=== PATIENT | female | born 1965 | race Caucasian/White ===

== ENCOUNTER 2020-11-24 11:59 | Outpatient (CLI) | payer OTHER, MEDICAID, SELFPAY ==
--- NOTE | 2020-11-24 11:30 | DI.RAD_ITS ---
EXAM: XR HIP RT COMPLETE AP PELVIS INDICATION: eval R hip pain. COMPARISON: CR ABD FLAT UPRIGHT PA CHEST from 12/28/2013 TECHNIQUE: 2D digital imaging was performed. FINDINGS: There is sclerosis and depression involving the superior surface of the right humeral head. The find ings are suspicious for avascular necrosis. Trauma cannot be excluded. In the right hip, there is j oint space narrowing and periarticular spurring present consistent with osteoarthritis. The bones ar e otherwise normally mineralized. The soft tissues are unremarkable. IMPRESSION: Sclerosis and loss of volume of the right femoral head suspicious for avascular necrosis. Posttrauma tic or arthritic changes cannot be excluded. Secondary degenerative changes of the right hip were al so noted. DATA REPOSITORY: RADIATION DOSE DELIVERED:
--- NOTE | 2020-11-24 11:30 | DI.RAD_ITS ---
EXAM: XR KNEE RT 4V AP,LAT,DIANNE,PAT CLINICAL HISTORY: eval R knee pain. TECHNIQUE: 2D digital imaging was performed. COMPARISON: CR ABD FLAT UPRIGHT PA CHEST from 12/28/2013 FINDINGS: BONES: No acute fracture is present. No bony destructive lesion is seen. JOINTS: The knee is normally aligned. No joint effusion is seen. SOFT TISSUE: Normal. IMPRESSION: Unremarkable radiographs of the right knee. DATA REPOSITORY: RADIATION DOSE DELIVERED:
== END 2020-11-24 12:19 ==
PROVIDERS: PCP Family Medicine; Referring Provider Family Medicine; Visit Provider Student in an Organized Health Care Education/Training Program
DX: M25.561 Pain in right knee (principal); M25.551 Pain in right hip; M87.051 Idiopathic aseptic necrosis of right femur; M23.91 Unspecified internal derangement of right knee
CPT/HCPCS: 20610; 99214; 73502; 73564; J1040

== ENCOUNTER 2020-12-07 02:02 | Outpatient (CLI) | payer OTHER, MEDICAID, SELFPAY ==
--- NOTE | 2020-12-07 07:45 | DI.MRI_ITS ---
EXAM: MR LOWER JOINT RT WO CLINICAL HISTORY: R hip AVN,M87.051 TECHNIQUE: Multiplanar multisequence MRI was performed without intravenous contrast. COMPARISON: CR XR HIP RT COMPLETE AP PELVIS from 11/24/2020 FINDINGS: The examination is limited due to patient motion artifact. BONES/JOINTS: No fracture or contusion pattern. There is flattening of the articular surface of the r ight femoral head with loss of the normal spherical shape. There is hypointense signal seen in the a rticular surface of the femoral head with adjacent mild hyperintense signal on the T2 weighted images . This corresponds to hypointense signal on the T1 weighted images. There is narrowing of the joint space. There also appears to be some loss of the articular cartilage. There is otherwise normal ma rrow signal present. No evidence of an occult fracture. There is a small joint effusion. MUSCULOTENDINOUS STRUCTURES: There is hyperintense signal seen in the gluteus cat muscle adjacent to the right greater trochanter.There also appears to be mild increased a mild hyperintense signal s een in the adjacent gluteus medius muscle and vastus lateralis muscle. SOFT TISSUES: No soft tissue mass is identified. OTHER FINDINGS: None. IMPRESSION: 1. Findings most suggestive of avascular necrosis of the right femoral head. With the loss of volume of the femoral head and the joint space narrowing findings are suggestive of a stage IV disease. 2. Findings suspicious for greater trochanter pain syndrome with strain involving the gluteus cat , gluteus medius and vastus lateralis muscles. DATA REPOSITORY:
== END 2020-12-07 02:03 | disposition home or self-care (01) ==
PROVIDERS: PCP Family Medicine; Visit Provider Student in an Organized Health Care Education/Training Program
DX: M87.051 Idiopathic aseptic necrosis of right femur (principal)
CPT/HCPCS: 73721

== ENCOUNTER 2020-12-26 14:21 | Outpatient (CLI) | payer OTHER, MEDICAID, SELFPAY ==
--- NOTE | 2020-12-26 14:35 | DI.RAD_ITS ---
EXAM: XR HIP RT COMPLETE AP PELVIS CLINICAL HISTORY: preop planning. TECHNIQUE: 2D digital imaging was performed. COMPARISON: CR XR HIP RT COMPLETE AP PELVIS from 11/24/2020 FINDINGS: Again noted are findings in superior aspect of the right femoral head consistent with avascular necro sis. There is no joint space narrowing. No osteophytes. For similar findings are not seen in the o pposite-left hip. IMPRESSION: Findings of avascular necrosis in the superior aspect of the right femoral head, without significant radiographic change compared to 11/24/2020 sign rib DATA REPOSITORY: RADIATION DOSE DELIVERED:
== END 2020-12-26 14:22 | disposition home or self-care (01) ==
LOC: DIORS 14:21
PROVIDERS: PCP Family Medicine; Referring Provider Family Medicine; Visit Provider Student in an Organized Health Care Education/Training Program
DX: M87.051 Idiopathic aseptic necrosis of right femur (principal); Z98.890 Other specified postprocedural states; E11.9 Type 2 diabetes mellitus without complications
CPT/HCPCS: 99214; 73502

== ENCOUNTER 2020-12-30 01:45 | Outpatient (CLI) | payer OTHER, MEDICAID, SELFPAY ==
[2020-12-30 13:27] LABS: HCT 40.7 % (36.0-46.0); HGB 12.9 g/dL (11.2-15.7); MCH 28.5 pg (27.0-33.0); MCHC 31.7 % (32.0-36.0); MCV 89.8 fL (80-95); MPV 9.5 fL (8.0-11.0); Platelet Count 294 10^3/uL (130-400); RBC 4.53 10^6/uL (3.93-5.22); RDW 15.2 % (11.7-14.6); RDW-SD 50.5 fL; WBC 12.03 10^3/uL (4.4-10.8)
[2020-12-30 13:54] LABS: Anion Gap 3.4 mmol/L (3-11); BUN 6 mg/dL (7-18); CO2 31.6 mmol/L (21.0-32.0); CREATININE 0.7 mg/dL (0.55-1.02); Calcium 9.1 mg/dL (8.5-10.1); Chloride 100 mmol/L (98-107); Glucose 244 mg/dL (74-106); Potassium 4.4 mmol/L (3.5-5.1); Sodium 135 mmol/L (136-145)
[2020-12-30 13:57] LABS: Source Nasal/Nares
[2020-12-30 14:34] LABS: Hemoglobin A1C 10.2 % (<5.7)
[2020-12-30 20:59] LABS: COVID-19 PCR Negative (Negative)
== END 2020-12-30 01:46 | disposition home or self-care (01) ==
LOC: LBO 01:45
PROVIDERS: PCP Family Medicine; Visit Provider Student in an Organized Health Care Education/Training Program
DX: M87.051 Idiopathic aseptic necrosis of right femur (principal); R73.9 Hyperglycemia, unspecified; Z01.818 Encounter for other preprocedural examination; Z01.82 Encounter for allergy testing
CPT/HCPCS: 36415; 80048; 85027; 86850; 86900; 86901; U0003; 83036

== ENCOUNTER 2021-06-26 02:09 | Outpatient (CLI) | payer OTHER, MEDICAID, SELFPAY ==
[2021-06-26 15:50] LABS: Source Nasal/Nares
[2021-06-26 19:26] LABS: COVID-19 PCR Negative (Negative)
== END 2021-06-26 02:10 | disposition home or self-care (01) ==
LOC: LBO 02:09
PROVIDERS: PCP Family Medicine; Visit Provider Student in an Organized Health Care Education/Training Program
DX: Z20.822 Contact with and (suspected) exposure to COVID-19 (principal); Z01.818 Encounter for other preprocedural examination
CPT/HCPCS: 87635

== ENCOUNTER 2021-06-26 02:54 | Outpatient (CLI) | payer OTHER, MEDICAID, SELFPAY | END 2021-06-26 02:55 | disposition home or self-care (01) | LOC: LBO 02:54 | PROVIDERS: PCP Family Medicine; Visit Provider Student in an Organized Health Care Education/Training Program | DX: M87.051 Idiopathic aseptic necrosis of right femur (principal); Z01.818 Encounter for other preprocedural examination; Z01.812 Encounter for preprocedural laboratory examination | CPT/HCPCS: 36415; 86850; 86900; 86901 ==

== ENCOUNTER 2021-06-28 07:53 | Day surgery (SDC) | payer OTHER, MEDICAID, SELFPAY ==
[2021-06-28] VITALS (10 sets, daily range): BP systolic 108–135; BP diastolic 51–88; PULSE 70–96; RESP 12–23; TEMP 36–36.5; O2SAT 93–99; BMI 35.9
--- NOTE | 2021-06-28 07:36 | W.PM.DSUDISC ---
Documented by User: DREW Ayala 06/28/21 10:27 Discharge Plan Disposition Patient Disposition: HOME Condition: Stable Discharge Details Reason For Visit: Right MONY Attending Provider: Crow Cazares Primary Care Provider: Bj Quiñones Home Meds and New Rx's Prescriptions: New aspirin 81 mg tablet,delayed release (DR/EC) 81 mg PO BID Qty: 60 RF: 0 celecoxib [Celebrex] 200 mg capsule 200 mg PO BID Qty: 60 RF: 0 acetaminophen [Tylenol Extra Strength] 500 mg tablet 500 mg PO Q6H PRNQty: 90 RF: 0 oxycodone 5 mg tablet 5 mg PO Q4H PRNQty: 20 RF: 0 pantoprazole [Protonix] 40 mg tablet,delayed release (DR/EC) 40 mg PO DAILY Qty: 30 RF: 0 Continued Trelegy Ellipta 100-62.5-25 mcg blister with device 1 inh inhalation DAILY RF: 0 budesonide-formoterol [Symbicort] 80-4.5 mcg/actuation HFA aerosol inhaler 2 puff inhalation BID RF: 0 Tudorza Pressair 400 mcg/actuation aerosol powdr breath activated 1 inh inhalation BID RF: 0 albuterol sulfate [ProAir HFA] 90 mcg/actuation HFA aerosol inhaler 2 puff inhalation Q6H PRNRF: 0 glipizide 5 mg tablet 5 mg PO BID RF: 0 alprazolam 0.5 mg tablet 0.5 mg PO DAILY RF: 0 amitriptyline 25 mg tablet 25 mg PO DAILY RF: 0 metformin 1,000 mg tablet 1,000 mg PO BID RF: 0 Lantus Solostar U-100 Insulin 100 unit/mL (3 mL) insulin pen 60 unit subcut QHS RF: 0 divalproex [Depakote] 125 MG tablet,delayed release (DR/EC) 1,500 mg PO DAILY RF: 0 lovastatin 40 MG tablet 40 mg PO DAILY RF: 0 paroxetine HCl 40 MG tablet 40 mg PO DAILY RF: 0 cyclobenzaprine 10 MG tablet 10 mg PO TID PRN Qty: 14 RF: 0 Humalog Mix 50-50 KwikPen 100 unit/mL (50-50) Insulin Pen SUBCUT RF: 0 oxycodone-acetaminophen [Percocet] 5-325 mg Tablet 1 tab PO BID RF: 0 Discontinued tramadol 50 mg tablet 50 mg PO TID PRN (Reason: pain) Qty: 21 RF: 0 ibuprofen 800 MG tablet 800 mg PO TID PRN Qty: 30 RF: 0 Discharge Instructions Additional Instructions: Total Hip Discharge Instructions Activity: The most important activity is to walk. You should try to take short walks a few times a day. You have no restrictions on movement or positioning, but do not try to force what you do. You will find some stiffness and weakness with hip flexion (lifting your knee). Do not try to strengthen this too early, continue to practice walking and stairs and this will come. - Outpatient physical therapy can be helpful to help return you to a normal gait and improve your flexibility and strength. This can start around 2 weeks. For some patients, it?s not necessary. Usually this is determined at the time of discharge or at the first post-operative visit. - You should wear the WARNER hose on both legs for 2 weeks. Dressing: Keep the surgical dressing in place for at least one week. After the first week it may be removed and replace with light gauze and tape or nothing. It may get wet after 3 days but avoid soaking the dressing. If it gets wet, just lightly pat dry. It is important to always keep some gauze between skin folds, especially when you are sitting. Spend some time with the wound exposed when you are lying flat as the incision does wrinkle onto itself. Medications: - You should take Tylenol and an anti-inflammatory Celebrex as your primary pain control medications. If the Celebrex is too expensive or not covered, please call the office for another alternative (Advil/Ibuprofen or Naproxen/Aleve). - You have been prescribed a stronger pain medication Oxycodone for breakthrough pain, take as needed as prescribed. - You have also been prescribed a stomach acid reduction agent Pantoprozole to help reduce stomach acid and reflux. - You will be taking Aspirin 81mg twice a day for DVT prevention unless instructed otherwise. - If you have constipation you should take Colace or Miralax (both [id number]). It takes most people 3-4 days to have a bowel movement. - Continue with your home regimen for Diabetes control. Check your sugars often as it is imperative to keep your blood glucose level less than 200 to minimize infection risk. Follow-up: 2 weeks If you have any acute concerns or questions, please do not hesitate to contact the office at [phone]. You may contact Dr. Cazares with any questions after hours through the hospital at [phone] or on his cell phone at [phone]. Referrals: Crow Cazares MD [ [facility] STAFF PHYSICIAN] - Equipment/Supplies: Walker Activity:: Activity as Tolerated Remove Dressings/Wound Care:: Do Not Remove Shower/Bathe:: 72 hours Diet:: As Tolerated Discharge Orders Discharge Orders: Discharge Order (Routine); Ordered 06/28/21 Ordered By: Crow Cazares DS: Diagnosis Discharge Diagnosis (1) Avascular necrosis of bone of right hip: Status: Acute Documented by User: Crow Cazares MD 06/28/21 14:42 Discharge Plan Disposition Patient Disposition: HOME Condition: Stable Discharge Details Reason For Visit: Right MONY Attending Provider: Crow Cazares Primary Care Provider: Bj Quiñones Home Meds and New Rx's Prescriptions: New aspirin 81 mg tablet,delayed release (DR/EC) 81 mg PO BID Qty: 60 RF: 0 celecoxib [Celebrex] 200 mg capsule 200 mg PO BID Qty: 60 RF: 0 acetaminophen [Tylenol Extra Strength] 500 mg tablet 500 mg PO Q6H PRNQty: 90 RF: 0 oxycodone 5 mg tablet 5 mg PO Q4H PRNQty: 20 RF: 0 pantoprazole [Protonix] 40 mg tablet,delayed release (DR/EC) 40 mg PO DAILY Qty: 30 RF: 0 Continued Trelegy Ellipta 100-62.5-25 mcg blister with device 1 inh inhalation DAILY RF: 0 budesonide-formoterol [Symbicort] 80-4.5 mcg/actuation HFA aerosol inhaler 2 puff inhalation BID RF: 0 Tudorza Pressair 400 mcg/actuation aerosol powdr breath activated 1 inh inhalation BID RF: 0 albuterol sulfate [ProAir HFA] 90 mcg/actuation HFA aerosol inhaler 2 puff inhalation Q6H PRNRF: 0 glipizide 5 mg tablet 5 mg PO BID RF: 0 alprazolam 0.5 mg tablet 0.5 mg PO DAILY RF: 0 amitriptyline 25 mg tablet 25 mg PO DAILY RF: 0 metformin 1,000 mg tablet 1,000 mg PO BID RF: 0 Lantus Solostar U-100 Insulin 100 unit/mL (3 mL) insulin pen 60 unit subcut QHS RF: 0 divalproex [Depakote] 125 MG tablet,delayed release (DR/EC) 1,500 mg PO DAILY RF: 0 lovastatin 40 MG tablet 40 mg PO DAILY RF: 0 paroxetine HCl 40 MG tablet 40 mg PO DAILY RF: 0 cyclobenzaprine 10 MG tablet 10 mg PO TID PRN Qty: 14 RF: 0 Humalog Mix 50-50 KwikPen 100 unit/mL (50-50) Insulin Pen SUBCUT RF: 0 oxycodone-acetaminophen [Percocet] 5-325 mg Tablet 1 tab PO BID RF: 0 Discontinued tramadol 50 mg tablet 50 mg PO TID PRN (Reason: pain) Qty: 21 RF: 0 ibuprofen 800 MG tablet 800 mg PO TID PRN Qty: 30 RF: 0 Discharge Instructions Additional Instructions: Total Hip Discharge Instructions Activity: The most important activity is to walk. You should try to take short walks a few times a day. You have no restrictions on movement or positioning, but do not try to force what you do. You will find some stiffness and weakness with hip flexion (lifting your knee). Do not try to strengthen this too early, continue to practice walking and stairs and this will come. - Outpatient physical therapy can be helpful to help return you to a normal gait and improve your flexibility and strength. This can start around 2 weeks. For some patients, it?s not necessary. Usually this is determined at the time of discharge or at the first post-operative visit. - You should wear the WARNER hose on both legs for 2 weeks. Dressing: Keep the surgical dressing in place for at least one week. After the first week it may be removed and replace with light gauze and tape or nothing. It may get wet after 3 days but avoid soaking the dressing. If it gets wet, just lightly pat dry. It is important to always keep some gauze between skin folds, especially when you are sitting. Spend some time with the wound exposed when you are lying flat as the incision does wrinkle onto itself. Medications: - You should take Tylenol and an anti-inflammatory Celebrex as your primary pain control medications. If the Celebrex is too expensive or not covered, please call the office for another alternative (Advil/Ibuprofen or Naproxen/Aleve). - You have been prescribed a stronger pain medication Oxycodone for breakthrough pain, take as needed as prescribed. - You have also been prescribed a stomach acid reduction agent Pantoprozole to help reduce stomach acid and reflux. - You will be taking Aspirin 81mg twice a day for DVT prevention unless instructed otherwise. - If you have constipation you should take Colace or Miralax (both [id number]). It takes most people 3-4 days to have a bowel movement. - Continue with your home regimen for Diabetes control. Check your sugars often as it is imperative to keep your blood glucose level less than 200 to minimize infection risk. Follow-up: 2 weeks If you have any acute concerns or questions, please do not hesitate to contact the office at [phone]. You may contact Dr. Cazares with any questions after hours through the hospital at [phone] or on his cell phone at [phone]. Referrals: Crow Cazares MD [ [facility] STAFF PHYSICIAN] - Equipment/Supplies: Walker Activity:: Activity as Tolerated Remove Dressings/Wound Care:: Do Not Remove Shower/Bathe:: 72 hours Diet:: As Tolerated Discharge Orders Discharge Orders: Discharge Order (Routine); Ordered 06/28/21 Ordered By: Crow Cazares
[2021-06-28] MEDS: Celecoxib 200 MG CAP 400 MG PO (08:54)
[2021-06-28] MEDS: Acetaminophen 500 MG TAB 1000 MG PO (08:54)
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
[2021-06-28] MEDS: Lactated Ringers 1,000 ML 80 ML IV (09:00)
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
[2021-06-28 10:14] LABS: HCT 43.3 % (36.0-46.0); HGB 13.6 g/dL (11.2-15.7); MCH 27.5 pg (27.0-33.0); MCHC 31.4 % (32.0-36.0); MCV 87.5 fL (80-95); MPV 9.9 fL (8.0-11.0); Platelet Count 304 10^3/uL (130-400); RBC 4.95 10^6/uL (3.93-5.22); RDW 15.5 % (11.7-14.6); RDW-SD 49.1 fL; WBC 15.07 10^3/uL (4.4-10.8)
[2021-06-28] MEDS: ceFAZolin 2,000 MG in Normal Saline 100 ML 200 MG IVPB (11:02)
--- NOTE | 2021-06-28 12:18 | DI.RAD_ITS ---
Exam(s) XR HIP RT IN OR EXAM: XR HIP RT IN OR CLINICAL HISTORY: Avascular necrosis of bone of right hip. TECHNIQUE: 2D digital imaging was performed. COMPARISON: No exams were available for comparison FINDINGS: Fluoroscopy was provided during orthopedic procedure on right hip. Images not provided. See procedu re report for details. Fluoroscopy time 30.2 seconds. Cumulative dose 4.89mGy IMPRESSION: DATA REPOSITORY: RADIATION DOSE DELIVERED:
--- NOTE | 2021-06-28 12:33 | W.PM.OP ---
Date of service: 06/28/21 Time of Service: 12:33 Operative Note Operative Note DATE OF PROCEDURE: 06/28/21 PRE-OP DIAGNOSIS: Right Hip Osteoarthritis with Femoral Head Collapse POST-OP DIAGNOSIS: same PROCEDURE: Right Anterior Total Hip Arthroplasty with Intraoperative Navigation SURGEON: Crow Cazares WOODYARD OPERATOR: Maria Fernanda Merritt ANESTHESIA TYPE: General LMA/ETT Refer to Anesthesia Record ESTIMATED BLOOD LOSS: 200 PATHOLOGY: none sent TOURNIQUET TIME: 0 COMPLICATIONS: None Patient was transported to: PACU Patient's condition: stable Implants: 1. Depuy Chalfont Acetabular Component, 48mm 2. Depuy Acetabular Liner, [id number] 3. Depuy Corail Standard Collared Femoral Stem, Size 10 4. Depuy Altrx Ceramic Femoral Head, Size 32+5mm Indications: I have seen Haylie in clinic for symptoms of hip arthritis, confirmed with radiographic findings. She has exhausted nonoperative methods and was having significant limitations in daily function and desired better function and less pain. I discussed the technical details of a hip replacement. I explained the risks of the procedure to include, but not limited to, bleeding, infection, pain, stiffness, fracture, damage to nerves and vessels, damage to muscles and tendons, loosening, instability, leg length inequality, need for repeat procedure, blood clot and cardiopulmonary demise. Despite these risks, Haylie elected to proceed. Findings: There was significant signs of arthritis throughout the hip. There was calcification and osteophytes about the anterior acetabulum and collapse and loss of cartilage to the superior femoral head. Procedure Description: Haylie was greeted in the preoperative holding area where the correct side was identified and marked. The consent was reviewed with the patient and signed. The history and physical was updated. All questions were answered. She was taken back to the operating room. A general anesthestic was then administered. The feet were wrapped with cast padding and Coban and then placed into the boot liners and then into the boots. Care was taken to protect the skin and make sure the heels were fully down and the boots were stable. The patient was then positioned onto the HANA table. Both legs were held in a neutral position. SCDs were applied. The patient was then slid down onto a peroneal post. Prophylactic antibiotics in the form of Cefazolin were administered. 1g of Tranxemic Acid was given intravenously within 30 minutes of incision. The right leg was then prepped with Chloraprep and draped in a standard fashion. A second prep with Chloraprep was performed prior to placement of a shower-curtain type drape with Iodine impregnated skin protection. A timeout to confirm correct identity, side and site, procedure, allergies, anesthesia, and medical concerns was performed. An obliquely oriented incision was made starting lateral to the ASIS and running distal over the Tensor Fascia Ann (TFL) muscle belly toward the fibular head, approximately 10cm. The skin and soft tissue was dissected sharply, through Sarah?s fascia, and to the fascia of the TFL. With the fascia and superior border of the IT band identified, the fascia was incised with a new knife just above any perforators from the IT band. The TFL muscle belly was bluntly dissected away from the fascia and moved laterally. The fat between TFL and rectus was identified to ensure the dissection was not within the TFL. Blunt dissection created space between abductors and the capsule and retractor was placed over the lateral femoral neck. The fibers of the rectus femoris tendon were identified and these were freed from the anterior capsule. A second cobra retractor was placed around the medial femoral neck. The TFL was further retracted laterally to show the deep fascia. Careful dissection through this layer identified three main crossing vessels of the lateral femoral circumflex. These were cauterized in multiple locations and then cut without any noticeable bleeding. The TFL was further released bluntly from the deep fascia to expose anterior hip capsule and fat The Vitor orthopaedic retractor was then placed beneath the TFL and against sartorius and medial soft tissues to protect and retract the soft tissues. A T-capsulotomy was then performed starting at the superior lateral acetabulum and moving distally to the intertrochanteric ridge. These capsular flaps were tagged with a No. 1 Ethibond and elevated from within. The capsular flaps were released to the shoulder of the lateral neck and to the lesser trochanter to give excellent visualization of the proximal femur. A neck osteotomy was performed using an oscillating saw based on preoperative templates. This cut started in the shoulder and of the lateral neck and exited medially. The saw was at all times directed medially to avoid injury to the greater trochanter. Gross traction was applied to the leg and the osteotomy opened. The femoral head was removed with a corkscrew, making sure to protect the TFL on its exit. Traction was released after head removal. This was measured on the back table to determine the starting reamer size. Portions of the rectus obscuring visualization were minimally elevated off the superior acetabulum. An anterior retractor was placed over the anterior wall between capsule and labrum and attached to the Gripper retraction system. The femur was rotated to 90 degrees and medial capsule was fully released until the lesser trochanter was palpable and visible; the femur was returned to 30 degrees. A posterior retractor was placed similarly between capsule and labrum. This provided excellent visualization. The contents of the cotyloid fossa were removed with electrocautery and the labrum was removed with a knife. There was significant chondromalacia of the superior acetabulum. There was some calcification of the labrum and osteophytes of the superior acetabulum. Acetabular reaming began with a 44mm reamer. This first reaming was directed anterior to posterior and medial to get down to the true floor. This was inspected and reamed until the true floor was reached. The anterior retractor was then released and entry and exit was provided by traction on the capsular flaps. I then reamed sequentially up to a 48mm reamer where good fit was obtained. The larger reamers were oriented based on anatomical reference of the anterior and lateral conrad to ensure proper abduction and anteversion. Positioning and size was confirmed with the fluoroscopy. A 48mm Depuy Chalfont acetabular component was selected. The deep tissues were irrigated. The acetabular component was then impacted in a position of about 40-45 degrees of abduction and 15-20 degrees of anteversion, using the patient?s anatomy as the ultimate landmark. Fluoroscopy was used to confirm this. There was excellent ingredient scaler of the acetabular component and the inserting handle was removed. The acetabular liner, Depuy [id number] polyethylene liner, was inserted and lined up with the tines of the acetabular component. There was no soft tissue interposition. The liner was then impacted into position and confirmed to be well-seated. A portion of the laci-articular cocktail was then injected around the acetabulum into the capsule and periosteum. This cocktail consisted of 50cc of 0.25% Bupivicaine and 20cc of Exparel and 30mg of Ketorolac. The leg was rotated to 120 degrees. Any remaining medial capsule was released until the lesser trochanter was easily palpable. A retractor was placed medially. The lateral capsule was further released into the shoulder to allow access to the greater trochanter. A Martinez retractor was placed over the greater trochanter which allowed the trochanter to flip in front of the capsule for excellent exposure. The leg was brought down into maximal extension and 20 degrees of adduction while ensuring there was no impingement on the acetabulum. Any remnant capsule within the trochanter was released. Piriformis and obturator externis were identified and protected. There was excellent access to the proximal femur. The lateral neck remnant was removed with a rongeur. A blunt canal probe was used to identify the canal and trajectory for later broaching. A box osteotome initiated the broach course. A small curved rasp and a curved curette were used to work laterally. Broaching then began with a size 8 Corail broach. This was inserted manually around the trochanter and into the canal before mallet blows. The broach was seated to a few millimeters below the cut level based on the neck cut and the preoperative template. Sequential broaching was continued with the ObjectVideose pneumatic broaching device until a tight fit was obtained with good rotational control of the femur. A trial standard neck was inserted along with a +1 trial head. The leg was brought out of extension and adduction and then reduced with traction and internal rotation. The leg was stable anteriorly in a position of 30 degrees of extension and 90 degrees of external rotation. Fluoroscopy was used to ensure there was no fracture and the stem was seated well. Leg lengths were checked with an AP pelvis and pelvic reference points. Wozityou navigation system was used to confirm appropriate positioning and leg length and offset. This was just short of recreating her natural offset and leg length, so I went to a +5 head. Once content with the desired offset and leg lengths, the leg was brought back into extension, external rotation and adduction. The periosteum and surrounding tissue was injected with remaining portion of the laci-articular cocktail. The proximal femur was irrigated as well as the deep tissues. The Depuy Corail standard collared stem, size 10, was then manually inserted into the proximal femur making sure to control rotation. It was then malleted into position with light blows, giving breaks to allow bone expansion and decrease risk of fracture. The selected Depuy Altrx Ceramic Head, size 32+5mm, was then placed onto the clean and dry trunnion and secured with impaction onto the tapered fit. The leg was brought back out of extension and adduction and reduced with traction and internal rotation. Stability was confirmed with no shuck at 90 degrees of external rotation and 30 degrees of extension. No impingement through range of motion arc. Final x-ray images were obtained with fluoroscopy to confirm adequate positioning and no intraoperative fracture. The deep tissues were thoroughly irrigated with Irrisept chlorhexadine solution. The capsule was then reapproximated with the previously placed Ethibond sutures. The TFL fascia was finally closed with a No. 2 Stratafix, barbed suture. Deep tissues were then reapproximated with 0 Vicryl and a running 2-0 Vicryl. The skin was closed with a running 4-0 Monocryl in a subcuticular fashion. This was reinforced with skin glue. A Mepilex silver dressing was applied. At the end of the case, all counts were correct. Haylie was transferred to the hospital bed without difficulty and suffering no apparent complication. She has a good prognosis. Physical therapy will start today and without restrictions, weight-bearing as tolerated. Aspirin 81mg BID will be used for DVT prophylaxis.
[2021-06-28] MEDS: fentaNYL 100 MCG/2 ML VIAL IVP ×2 (13:06→13:19)
[2021-06-28] MEDS: oxyCODONE 5 MG TAB PO (14:19)
--- NOTE | 2021-06-28 14:36 | W.ANESPOSTOP ---
Postoperative Evaluation Date, Time and Location Date Performed: 06/28/21 Time Performed: 14:37 Patient Location: Day Surgery Unit Vital Signs Most Recent Imported Vital Signs: Most Recent Vital Signs Temp Pulse Resp BP Pulse Ox 36.3 C L 71 16 124/66 94 06/28/21 13:54 06/28/21 13:54 06/28/21 13:54 06/28/21 13:54 06/28/21 13:54 Pain Score Most Recent Pain Score: Most Recent Pain Score Pain Level [Right Hip] 8 06/28/21 08:33 Pain Level 8 06/28/21 13:54 Assessment Mental Status: Awake (Alert & Oriented to Patient Baseline) Airway and Respiratory Function: Patent airway with normal (patient baseline) respiratory exam Cardiovascular Function: Hemodynamically Stable Hydration Status: Adequately Hydrated Nausea & Vomiting: No Nausea or Vomiting Pain: Pain is tolerable per patient (Pt. states 6/10. She came in at an 8/10 and she states she is ready for PT.) Peripheral Nerve Block: Regional nerve block not resolved at time of post operative discharge
--- NOTE | 2021-06-28 14:45 | IN_ITS ---
Date of service: 06/28/21 Time of Service: 14:45 PT Notes Visit Reasons: Right MONY Physical Therapy Day Surgery Initial Evaluation Date: 06/28/2021 Referring Doctor: DREW Ayala PT Orders: PT CONSULT: S/P Ortho surgery Precautions: WBAT on the R LE with AD. Patient Profile/Admitting Diagnosis: Haylie is a 56-year-old female with a right hip osteoarthritis with femoral head collapse and is status post right total anterior hip arthroplasty on postoperative day 0. PMHX: Medical History (Updated 12/30/20 @ 14:15 by Crow Cazares MD) Adjustment disorder Asthma Cataract Diabetes mellitus Fatigue Fibromyalgia GERD (gastroesophageal reflux disease) Irritable bowel syndrome with diarrhea Lumbar back pain with radiculopathy affecting lower extremity Memory loss Microscopic colitis Obesity (BMI 30-39.9) Obstructive sleep apnea Peripheral neuropathy Polymyalgia rheumatica Sciatica Tobacco abuse Vitamin B12 deficiency Vitamin D deficiency Social History/Home Situation: Lives with ailing mother who she provides caregiving for in a mobile home with 7 steps to enter with bilateral rails. Independent with all aspects of ADLs with occasional use of SPC outdoors when pain level gets unmanageable. Haylie states that she will have a friend who will partially assist her and her mom as she recovers at home. Equipment Owned/DME: FWW, SPC Subjective: Has been anxious to go home. Reports achiness in the R hip but is very much surprised about how good she has done with today's mobility assessment. Requested Dr. Cazares during today's follow up visit about the possibility of her getting HH PT as she will not have the liberty of leaving her ailing mother to go to outpatient PT. Objective: General Observation: Mepilex Ag over surgical incision. B TEDS on. Cold pack over surgical incision. IV access in R UE. Mental Status: Alert and oriented x 4 Pain: 3-4/10 in the R hip and thigh ROM: Right Lower Extremity: Hip flexion lacks the last 20 degrees due to pain. Hip abduction WFL. Knee flexion WFL. Ankle dorsiflexion WFL. Ankle plantarflexion WFL. Left Lower Extremity: Hip flexion WFL. Hip abduction WFL. Knee flexion WFL. Ankle dorsiflexion WFL. Ankle plantarflexion WFL. Strength: Right Lower Extremity: Hip flexors 3-/5. Hip abductors 4-/5. Knee flexors 5/5. Knee extensors 4/5. Ankle dorsiflexors 5/5. Ankle plantarflexors 5/5. Left Lower Extremity: Hip flexors 5/5. Hip abductors 5/5. Knee flexors 5/5. Knee extensors 5/5. Ankle dorsiflexors 5/5. Ankle plantarflexors 5/5. Sensation: Intact as to pain and light pressure in B LE Bed Mobility/Transfers: Supine to sit standby assist Sit to stand contact-guard assist Stand to sit standby assist Bed to chair standby assist Gait: Tolerated up to 150 feet on level surface ambulation using the front wheeled walker with step through gait pattern requiring standby assist only. Reported minimal pain in the right hip and thigh that did not limit distance covered. Stairs: Up and down 6 x 4 steps and 4 x 6 steps while holding onto B rails with step-to gait pattern requiring stand by assist only Balance: Static Sitting: Normal Dynamic Sitting: Normal Static Standing: Fair Dynamic Standing: Fair Special Tests: Mobility Limitations Standardized Measure [facility] 6 clicks Basic Mobility Inpatient Short Form: Raw Score: 22 CMS Score: 21% deficit Informed Consent/Education: Patient instructed in purpose of PT consult. Packet containing MONY exercise protocol has been given to patient. Education and training on initial set of exercises that can be done at home have been completed with patient. Assessment: Haylie is a 56-year-old female with a right hip osteoarthritis with femoral head collapse and is status post right total anterior hip arthroplasty on postoperative day 0. Requires the use of FWW to maximize independence and reduce fall risk at home. 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 Will have friend who will partially help out with errands and home chores. Patient presents with clinical signs and symptoms consistent with current/admitting diagnoses that have resulted to mobility limitations, gait instability, generalized weakness, and impairment of motor control as demonstrated by the following impairment level findings: 1. Decreased strength to R hip and knee major muscle groups 2. Impaired standing balance 3. Limitation of joint range of motion in R hip flexion Impairments are contributing to the following functional limitations: 1. Inability to safely ambulate without assistive device 2. Increase completion time for mobility ADL performance 3. Increased fall risk Patient is assessed as a [id number] moderate complexity based on the following: History: 56-year-old female with impairment level findings, functional limitations, and past medical history as indicated above Examination: Demonstrable impairment in strength, balance, and mobility level with underlying impairments and functional limitations as documented above Presentation: Evolving Decision Makin moderate complexity Goals: N/A. PT evaluation and 1-2 treatment sessions only for functional mobility training using recommended AD and for HEP instruction. Plan of Care/Treatment Plan: N/A. PT evaluation and 1-2 treatment session only for functional mobility training using recommended AD and for HEP instruction. DISCHARGE RECOMMENDATIONS: Per patient request and orthopdod approval, PT services as patient has limited support resources and time as she is the primary caregiver for her ailing mother. TREATMENT CODE/TIME: 00333 x 20 minutes, 86110 x 28 minutes beginning at 14:45 PM. Thank you for the opportunity to participate in the care of this patient. Ashlyn Laurent PT, DPT, CLT [facility] [place], [place]
--- NOTE | 2021-06-28 16:27 | CMACTNOTE_ITS ---
- If Service Date Differs Date of service: 06/28/21 Time of Service: 16:27 Care Management Activity Note At the request of Dr. Debora CM coordinates a referral to [facility] for new Home Health PT services.
== END 2021-06-28 16:15 | disposition home or self-care (01) ==
LOC: SUR 07:54
PROVIDERS: Nurse Anesthetist, Certified Registered; PCP Family Medicine; Visit Provider Student in an Organized Health Care Education/Training Program
PROC: (CPT 27130; principal; 2021-06-28 10:00)
DX: M16.11 Unilateral primary osteoarthritis, right hip (principal); M87.051 Idiopathic aseptic necrosis of right femur; E11.9 Type 2 diabetes mellitus without complications; Z79.4 Long term (current) use of insulin; E55.9 Vitamin D deficiency, unspecified
CPT/HCPCS: 20985; 27130; C1776; 85027; 97162; 97530; 73501; J0690; J1100; J2250; J2405; J2704; J3010

== ENCOUNTER 2021-07-20 12:09 | Outpatient (CLI) | payer OTHER, MEDICAID, SELFPAY ==
--- NOTE | 2021-07-20 10:00 | DI.RAD_ITS ---
Exam(s) XR HIP RT COMPLETE AP PELVIS EXAM: XR HIP RT COMPLETE AP PELVIS CLINICAL HISTORY: 1ST POST OP R MONY. TECHNIQUE: 2D digital imaging was performed of the right hip. Two views were obtained. AP pelvis an d lateral right hip views were obtained. COMPARISON: CR XR HIP RT COMPLETE AP PELVIS from 12/26/2020 XR HIP RT IN OR from 06/28/2021 XR HIP RT IN OR from 06/28/2021 FINDINGS: BONES: No acute fracture is present. No bony destructive lesion is seen. JOINTS: No dislocation present. There are stable postsurgical changes of a right total hip replacemen t. No evidence of hardware failure is present. SOFT TISSUE: Normal. IMPRESSION: Stable right THR. Unremarkable radiographs of the pelvis. DATA REPOSITORY: RADIATION DOSE DELIVERED:
== END 2021-07-20 12:10 | disposition home or self-care (01) ==
LOC: DIORS 12:09
PROVIDERS: PCP Family Medicine; Referring Provider Family Medicine
DX: Z96.641 Presence of right artificial hip joint (principal); Z47.1 Aftercare following joint replacement surgery; M87.051 Idiopathic aseptic necrosis of right femur
CPT/HCPCS: 73502

== ENCOUNTER → 2021-08-21 10:37 | Outpatient (BNVA) | payer OTHER, MEDICAID, SELFPAY | PROVIDERS: PCP Family Medicine; Referring Provider Family Medicine; Visit Provider Student in an Organized Health Care Education/Training Program | DX: Z47.1 Aftercare following joint replacement surgery (principal); Z96.641 Presence of right artificial hip joint; M23.91 Unspecified internal derangement of right knee ==

== ENCOUNTER 2021-11-15 10:34 | Outpatient (CLI) | payer MEDICARE, MEDICAID, SELFPAY ==
--- NOTE | 2021-11-15 10:15 | DI.RAD_ITS ---
Exam(s) XR HIP RT AP LAT ONLY EXAM: XR HIP RT AP LAT ONLY CLINICAL HISTORY: R MONY injury. TECHNIQUE: 2D digital imaging was performed. COMPARISON: CR XR HIP RT COMPLETE AP PELVIS from 07/20/2021 FINDINGS: There is stable position alignment of the components of right hip prosthesis. No fracture or looseni ng evident. No radiographic evidence of osteomyelitis. IMPRESSION: DATA REPOSITORY: RADIATION DOSE DELIVERED:
== END 2021-11-15 10:35 | disposition home or self-care (01) ==
LOC: DIORS 10:34
PROVIDERS: PCP Family Medicine; Referring Provider Family Medicine
DX: Z96.641 Presence of right artificial hip joint (principal); Z47.1 Aftercare following joint replacement surgery; M25.551 Pain in right hip; W19.XXXA Unspecified fall, initial encounter
CPT/HCPCS: 99213; 73502

== ENCOUNTER 2022-11-22 11:40 | Outpatient (CLI) | payer MEDICARE, MEDICAID, SELFPAY ==
--- NOTE | 2022-11-22 10:45 | DI.RAD_ITS ---
Exam(s) XR HIP RT AP LAT ONLY EXAM: XR HIP RT AP LAT ONLY CLINICAL HISTORY: ANNUAL F/U R MONY. TECHNIQUE: 2D digital imaging was performed. COMPARISON: Prior x-ray 11/15/2021 FINDINGS: Two views: There is continued stable appearance position alignment of components of the right hip prosthesis. N o fractures nor loosening evident. IMPRESSION: DATA REPOSITORY: RADIATION DOSE DELIVERED:
== END 2022-11-22 11:41 | disposition home or self-care (01) ==
LOC: DIORS 11:40
PROVIDERS: PCP Family Medicine; Referring Provider Family Medicine; Visit Provider Student in an Organized Health Care Education/Training Program
DX: Z96.641 Presence of right artificial hip joint (principal)
CPT/HCPCS: 99213; 73502

== ENCOUNTER 2023-02-08 11:20 | Outpatient (CLI) | payer MEDICARE, MEDICAID, SELFPAY ==
--- NOTE | 2023-02-08 11:00 | DI.RAD_ITS ---
Exam(s) XR KNEE LT 3V AP,LAT,DIANNE EXAM: XR KNEE LT 3V AP,LAT,DIANNE CLINICAL HISTORY: L knee pain. TECHNIQUE: 2D digital imaging was performed of the left knee. Three images were obtained. AP, late ral and PA tunnel views were obtained. COMPARISON: None. FINDINGS: BONES: No acute fracture is present. No bony destructive lesion is seen. There is a thin linear scle rotic line along the medial femoral condyle. This may represent a subchondral cyst. Osteonecrosis m ay also be considered. JOINTS: The knee is normally aligned. No joint effusion is seen. SOFT TISSUE: Normal. IMPRESSION: Thin linear sclerotic line in the medial femoral condyle. This may represent a subchondral cyst but osteonecrosis may also be considered. MRI of the knee may be considered for further evaluation. DATA REPOSITORY: RADIATION DOSE DELIVERED:
--- NOTE | 2023-02-08 11:00 | DI.RAD_ITS ---
Exam(s) XR KNEE RT 3V AP,LAT,DIANNE EXAM: XR KNEE RT 3V AP,LAT,DIANNE CLINICAL HISTORY: R knee pain. TECHNIQUE: 2D digital imaging was performed of the right knee. Three views obtained. AP, lateral an d PA tunnel views were obtained. COMPARISON: CR XR KNEE RT 4V AP,LAT,DIANNE,PAT from 11/24/2020 CR XR KNEE LT 3V AP,LAT,DIANNE from 02/08/2023 FINDINGS: BONES: No acute fracture is present. Thin linear sclerotic line in the medial femoral condyle. Mild sclerosis is also seen in the proximal metaphysis of the tibia. JOINTS: The knee is normally aligned. No joint effusion is seen. SOFT TISSUE: Normal. IMPRESSION: Thin linear sclerotic line in the medial femoral condyle. This may represent a subchondral cyst. Os teonecrosis should also be considered. An MRI of the right knee may be obtained for further evaluati on.. DATA REPOSITORY: RADIATION DOSE DELIVERED:
== END 2023-02-08 11:21 | disposition home or self-care (01) ==
LOC: DIORS 11:20
PROVIDERS: PCP Family Medicine; Referring Provider Family Medicine; Visit Provider Student in an Organized Health Care Education/Training Program
DX: M23.91 Unspecified internal derangement of right knee (principal); M23.92 Unspecified internal derangement of left knee
CPT/HCPCS: 20610; 73562; J1040

== ENCOUNTER → 2023-03-07 14:31 | Outpatient (BNVA) | payer MEDICARE, MEDICAID, SELFPAY | PROVIDERS: PCP Family Medicine; Referring Provider Family Medicine | DX: M23.91 Unspecified internal derangement of right knee (principal); M23.92 Unspecified internal derangement of left knee | CPT/HCPCS: 20610; J1040 ==

== ENCOUNTER 2024-07-20 02:52 | Outpatient (CLI) | payer MEDICARE, SELFPAY ==
--- NOTE | 2024-07-20 | DI.CT_ITS ---
Exam(s) CT CHEST W EXAM: CT CHEST W CLINICAL HISTORY: SMALL CELL LUNG CANCER RIGHT, C34.91. TECHNIQUE: Multi planar reconstructions were performed. CONTRAST MATERIAL: Omnipaque 350; 75 cc COMPARISON: CT,PT NM PET CT STANDARD SKULL BASE TO MID-THIGH from 05/28/2024 FINDINGS: CHEST: LUNGS: There is a spiculated 9 mm nodule in the superior segment of the right lower lobe, this corre sponding to focus of significant abnormal nodular uptake seen at this location on PET-CT scan of 05/05 and suspicious for neoplasm. There is some atelectasis and air trapping noted in the right lung but no other significant pulmonary nodules. A small 3 millimeter calcified 9 granuloma in the right upper lobe is noted. MEDIASTINUM: There is no adenopathy in the anterior mediastinal fat. The amount of both rosario paratrac heal and subcarinal lymphadenopathy is significantly decreased but not completely resolved. There is some residual increased tissue density in the subcarinal region. The amount of hilar adenopathy is also significantly decreased. CARDIAC: Heart size is normal. There is no pericardial effusion.Caliber of the thoracic aorta is wit hin normal limits. VISUALIZED UPPER ABDOMEN:There are no significant adrenal masses. Spleen size normal. No lesions se en in the partially visualized liver. OSSEOUS: No significant osseous lesions. Distal tip of central line is at the lower SVC.. IMPRESSION: 1. Compared to the prior recent outside PET-CT scan of 05/28/2024 there has been re-expansion of the right lower lobe and the 9 millimeters spiculated nodule in the right lower lobe which corresponded t o a significant focus of nodular FDG avidity is now visible on CT scan. No other significant lung no dules noted and there are no pleural effusions at this time. 2. The previously described bulky adenopathy in the paratracheal and subcarinal regions and both sukhdev r regions has significantly decreased but not completely resolved. RADIATION DOSE DELIVERED: 210.75mGy.cm Total DLP DATA REPOSITORY: All CT scans at this facility are submitted to the National Radiology Data Registry (NRDR) Dose Index Registry (DIR) with the [employer] ([employer]). RADIATION OPTIMIZATION: All CT scans at this facility use at least one of these dose optimization te chniques: automated exposure control; mA and/or kV adjustment per patient size (includes targeted exa ms where dose is matched to clinical indication); or iterative reconstruction.
[2024-07-20] MEDS: Normal Saline - Diluent 50 ML VIAL IJ (10:30)
[2024-07-20] MEDS: Omnipaque 350 MG/ML 100 ML BTL 70 ML IJ (10:33)
== END 2024-07-20 03:12 ==
LOC: DI 02:53
PROVIDERS: PCP Family Medicine; Visit Provider Internal Medicine Hospice and Palliative Medicine
DX: C34.91 Malignant neoplasm of unspecified part of right bronchus or lung (principal); C77.9 Secondary and unspecified malignant neoplasm of lymph node, unspecified
CPT/HCPCS: 71260; J3490

== ENCOUNTER 2024-07-20 04:04 | Outpatient (RCR) | payer MEDICARE, SELFPAY ==
[2024-07-20] MEDS: Normal Saline Flush 10 ML SYR IVP (10:27)
== END 2024-08-03 23:59 | disposition home or self-care (01) ==
LOC: INF 04:04
PROVIDERS: PCP Family Medicine; Visit Provider Internal Medicine Hospice and Palliative Medicine
DX: Z45.2 Encounter for adjustment and management of vascular access device (principal)
CPT/HCPCS: 96523